=== PATIENT | female | born 1950 | race African-American/Black ===

== ENCOUNTER 2022-08-21 20:56 | Emergency (ER) | payer OTHER ==
[~2022-08-21] VITALS: Ht 172.7 cm; Wt 90.0 kg
[2022-08-21 21:06] VITALS: O2SAT 98
[2022-08-21] MEDS ORDERED: LABETALOL 5MG/ML SYR 20 MG/4 ML SYRINGE IV ONE (21:45)
[2022-08-21 22:30] LABS: EOSINOPHILS % 2.9 % (0.0-5.0); HEMATOCRIT. 51.2 % (36.0-48.0); HEMOGLOBIN. 17.2 g/dL (12.0-16.0); LYMPHOCYTES % 14.4 % (20.0-50.0); MEAN CORPUSCULAR HEMOGLOBIN 32.3 pg (28.0-32.0); MEAN CORPUSCULAR VOLUME 96.3 fL (81.0-99.0); MEAN PLATELET VOLUME 10.7 fl (7.4-10.4); MONOCYTES % 5.3 % (2.0-8.0); NEUTROPHILS % 76.4 % (40.0-76.0); PLATELET 240 x1000/uL (130-400); RED BLOOD CELL COUNT 5.32 mill/uL (4.2-5.4); RED CELL DISTRIBUTION WIDTH 13.3 % (11.6-14.6)
[2022-08-21 22:42] LABS: CHLORIDE 106 mEq/L (98-107)
[2022-08-21] MEDS ORDERED: INSULIN REGULAR (HUMULIN R) 300UNITS/3ML VIAL IV ONE (22:45)
[2022-08-22] MEDS ORDERED: LABETALOL 5MG/ML SYR 20 MG/4 ML SYRINGE IV ONE ×2 (01:30→02:30)
[2022-08-22] MEDS ORDERED: AMLODIPINE 10MG TABLET PO ONE (02:45)
[2022-08-22] MEDS ORDERED: MECLIZINE 25MG TABLET PO ONE (05:30)
[2022-08-22] MEDS ORDERED: GLIPIZIDE XL 2.5MG TABLET PO ONE (05:30)
[2022-08-22] MEDS ORDERED: METFORMIN HCL 500MG TABLET PO ONE (05:30)
[2022-08-22] MEDS ORDERED: INSULIN REGULAR (HUMULIN R) 300UNITS/3ML VIAL SUBCUT ONE ×2 (07:30→10:00)
[2022-08-22] MEDS ORDERED: SODIUM CHLORIDE 0.9% 1,000 ML IV ONE (07:30)
[2022-08-22] MEDS ORDERED: INSULIN REGULAR (HUMULIN R) 300UNITS/3ML VIAL SUBCUT SCH (08:45)
[2022-08-22 10:33] VITALS: BP 136/71; PULSE 88; RESP 18; TEMP 98.7
== END 2022-08-22 11:00 | disposition short-term general hospital (02) ==
LOC: ER 20:56 → CANBEDREQ 08-22 10:47 → ER 08-22 11:00
DX: R42 Dizziness and giddiness (principal); I16.0 Hypertensive urgency; E11.65 Type 2 diabetes mellitus with hyperglycemia; I10 Essential (primary) hypertension; Z20.822 Contact with and (suspected) exposure to COVID-19
CPT/HCPCS: 99285; 96374; 96375; 80048; 82962 ×2; 85025; 36415 ×2; 93005; 70450; 71045; 96361; 87426; 84484; 96372; J3490; J8597; J7030; C9803; J1815 ×2